=== PATIENT | female | born 1990 | race African-American/Black ===

== ENCOUNTER 2018-10-12 14:55 | Emergency (ER) | payer OTHER ==
[~2018-10-12] VITALS: Ht 172.7 cm; Wt 88.9 kg
[2018-10-12 15:31] VITALS: BP 117/71
== END 2018-10-12 17:08 | disposition home or self-care (01) ==
LOC: ER 14:58
DX: S96.912A Strain of unspecified muscle and tendon at ankle and foot level, left foot, initial encounter (principal); X50.0XXA Overexertion from strenuous movement or load, initial encounter; Y93.89 Activity, other specified; Y99.8 Other external cause status; Y92.89 Other specified places as the place of occurrence of the external cause

== ENCOUNTER 2021-04-25 18:52 | Emergency (ER) | payer MEDICAID, OTHER ==
[~2021-04-25] VITALS: Ht 170.2 cm; Wt 79.8 kg
[2021-04-25 19:11] VITALS: BP 128/61
[2021-04-25] MEDS ORDERED: diphenhdrAMINE HCL 50 MG/1 ML VL IM ONE (22:00)
[2021-04-25] MEDS ORDERED: KETOROLAC TROMETH 60MG/2ML VIAL IM ONE (22:00)
[2021-04-25] MEDS ORDERED: ACETAMINOPHEN 325 MG TAB PO ONE (22:00)
[2021-04-25] MEDS ORDERED: SUMAtriptan SUCCINATE 6 MG/0.5 ML VL SC ONE (22:00)
== END 2021-04-25 22:07 | disposition left against medical advice (07) ==
LOC: EDBD 18:52 → ER 18:52
DX: G43.909 Migraine, unspecified, not intractable, without status migrainosus (principal); R07.89 Other chest pain; Z53.29 Procedure and treatment not carried out because of patient's decision for other reasons
CPT/HCPCS: 93005